=== PATIENT | female | born 1950 | race Caucasian/White ===

== ENCOUNTER 2016-12-15 15:11 | Inpatient (IN) | payer BC, MEDICARE ==
[2016-12-15] MEDS ORDERED: Maalox 30 mL Cup PO PRN (16:00)
[2016-12-15] MEDS ORDERED: Hydrocodone/APAP 5mg/325mg Tab PO PRN (16:00)
[2016-12-15] MEDS ORDERED: Magnesium Hydroxide (MOM) 30 mL UDC PO PRN (16:00)
[2016-12-15 16:26] VITALS: BP 139/74
[2016-12-15 16:44] LABS: HEMATOCRIT 38.9 % (35.0-45.0); HEMOGLOBIN 13.4 gm/dL (11.7-16.1); MEAN CELL VOLUME 92.9 fl (81-100); MEAN CORPUSCULAR HEMOGLOBIN 32.1 pg (27.0-31.0); MEAN CORPUSCULAR HGB CONC 34.6 pg (28.0-36.0); MEAN PLATELET VOLUME 8.5 fl; PLATELET COUNT 332 Th/cmm (150-400); RED BLOOD COUNT 4.19 Mil/cmm (3.80-5.20); RED CELL DISTRIBUTION WIDTH 13.2 % (11.5-20.0)
[2016-12-15 16:50] LABS: WHITE BLOOD COUNT 16.5 Th/cmm (4.8-10.8)
[2016-12-15] MEDS: D5-0.9%NS 1,000 ML IV SCH (16:53)
[2016-12-15] MEDS: Hydrocodone/APAP 10 mg/325 mg Tab PO PRN ×2 (16:57→23:51)
[2016-12-15 16:58] LABS: ALB/GLOB RATIO 1.3 (1.0-1.8); ANION GAP 11.9 (7.0-16.0); BILIRUBIN,TOTAL 0.3 mg/dL (0.3-1.0); BUN/CREATININE RATIO 34.4; CALCIUM SERUM 9.7 mg/dL (8.6-10.3); CARBON DIOXIDE 26.5 mEq/L (21.0-31.0); CREATININE - SERUM 1.6 mg/dL (0.6-1.2); PHOSPHOROUS 2.1 mg/dL (2.5-5.0); POTASSIUM SERUM 3.4 mEq/L (3.5-5.1)
[2016-12-15 17:22] LABS: EOSINOPHIL 4 % (0-5); NEUTROPHILS 63 % (40-80); PLATELET ESTIMATE ADEQUATE (NORMAL); TOTAL CELLS COUNTED 100
[2016-12-16 01:19] LABS: URINE BILIRUBIN NEGATIVE (NEGATIVE); URINE BLOOD SMALL (NEGATIVE); URINE COLOR YELLOW; URINE GLUCOSE (UA) NEGATIVE (NEGATIVE); URINE KETONE TRACE mg/dL (NEGATIVE)
[2016-12-16 01:20] LABS: URINE BACTERIA NONE SEEN /hpf (NONE SEEN); URINE EPITHELIAL CELLS FEW /lpf (FEW); URINE PROTEIN NEGATIVE (NEGATIVE); URINE RBC 0-2 /hpf (0-5); URINE UROBILINOGEN 0.2 E.U./dL (0.2 - 1.0)
[2016-12-16] MEDS: D5-0.9%NS 1,000 ML IV SCH ×2 (04:23→14:55)
[2016-12-16 06:16] LABS: % BASOPHILS 0.3 % (0.0-2.0); % EOSINOPHILS 4.4 % (0.0-5.0); % LYMPHOCYTES 33.5 % (20.0-50.0); % NEUTROPHILS 54.8 % (40.0-80.0); HEMATOCRIT 35.3 % (35.0-45.0); HEMOGLOBIN 12.1 gm/dL (11.7-16.1); MEAN CELL VOLUME 93.9 fl (81-100); MEAN CORPUSCULAR HEMOGLOBIN 32.3 pg (27.0-31.0); MEAN CORPUSCULAR HGB CONC 34.4 pg (28.0-36.0); MEAN PLATELET VOLUME 8.4 fl; NEUTROPHILE ABSOLUTE 6.8 Th/cmm (1.8-8.0); RED BLOOD COUNT 3.76 Mil/cmm (3.80-5.20); RED CELL DISTRIBUTION WIDTH 13.4 % (11.5-20.0)
[2016-12-16 06:35] LABS: PLATELET COUNT 262 Th/cmm (150-400); WHITE BLOOD COUNT 12.5 Th/cmm (4.8-10.8)
[2016-12-16 06:40] LABS: ANION GAP 8.6 (7.0-16.0); BUN/CREATININE RATIO 31.4; CARBON DIOXIDE 25.1 mEq/L (21.0-31.0); CREATININE - SERUM 1.4 mg/dL (0.6-1.2); MAGNESIUM 1.9 mg/dL (1.9-2.7); PHOSPHOROUS 1.8 mg/dL (2.5-5.0); POTASSIUM SERUM 3.7 mEq/L (3.5-5.1)
[2016-12-16] MEDS: Hydrocodone/APAP 10 mg/325 mg Tab PO PRN ×2 (13:52→21:26)
--- NOTE | 2016-12-17 03:45 | History & Physical ---
ADMIT DATE: 12/16/2016 CHIEF COMPLAINT: Fall. HISTORY OF PRESENT ILLNESS: The patient is a 66-year-old white female who slipped 5 days ago and has been unable to get up since then. The patient says he has test driver who comes in, but did not come this week. The patient has chronic pain. The patient was transferred to [facility] from [facility] in [place]. PAST MEDICAL HISTORY: Osteoarthritis, fibromyalgia. SOCIAL HISTORY: No reports of smoking, drinking or drug use. The patient lives alone. REVIEW OF SYSTEMS: See history of present illness. MEDICATION: See medication reconciliation form. PHYSICAL EXAMINATION: VITAL SIGNS ON ADMISSION: Temperature 98.0, pulse is 78, blood pressure 139/74, respiratory rate 16, O2 sat 97% on room air. GENERAL: The patient is awake, alert, nontoxic in appearance. HEENT: Normocephalic, atraumatic. Extraocular movements intact. Oropharynx clear. NECK: Supple. No thyromegaly. No lymphadenopathy. CARDIOVASCULAR: S1, S2. No murmurs, rubs or gallop. RESPIRATORY: Clear. No wheezes or rhonchi. GASTROINTESTINAL: Soft, nontender, nondistended. Positive bowel sounds. GENITOURINARY: No CVA tenderness. No suprapubic tenderness. BACK: No midline tenderness. EXTREMITIES: Equal pulses bilaterally. No cyanosis, clubbing or edema. SKIN: Negative. PSYCHIATRIC: Negative. NEUROLOGIC: Intact. Extraocular movements are intact. Sensation intact. Neurovascular intact. Bilateral muscle grossly normal. LABORATORY DATA: On admission are as follows: Hematology: WBC 16.5, hemoglobin 13.4, hematocrit 38.9, platelet count 232. No left shift noted. Chemistry: Sodium 142, potassium 3.4, chloride 107, bicarb 26, anion gap 11, BUN 55, creatinine 1.6. GFR is 34.4, glucose per labs, calcium 9.7, phosphorus 2.1, magnesium 2.1, total bili 0.3, AST 14, ALT is 8, alkaline phosphatase 68, creatinine kinase 64, total protein 6.1, albumin 3.4, globulin 2.7. RADIOLOGY: No new radiological results. IMPRESSION: 1. Leukocytosis. 2. Hypokalemia. 3. Acute kidney injury. 5. Hypophosphatemia. 6. Hypoalbuminemia. 7. Osteoarthritis. 8. Fibromyalgia. PLAN: The patient admitted to med-surg unit at [facility]. Seen by Dr. Saad Blanco. We will do further labs and consultation as needed. JOB# [id number] MTDD
--- NOTE | 2016-12-17 04:05 | Consultation ---
DATE OF CONSULTATION: 12/16/2016 INPATIENT NEPHROLOGY CONSULTATION REASON FOR CONSULTATION: Acute kidney injury. HISTORY OF PRESENT ILLNESS: The patient is a very pleasant 66-year-old woman with past medical history of osteoarthritis and fibromyalgia, who was admitted status post fall, mechanical, about 2 days prior to admission. The patient states that she was stuck in her shower and unable to come in because she cannot get up, finally was able to be brought in by neighbor to [facility] and subsequently transferred to [place] for continuation of care. On examination, the patient is alert and oriented. Denies complaints. No previous history of renal disease endorsed. REVIEW OF SYSTEMS: Denies fevers, chills, nausea, vomiting, chest pain, shortness of breath. Endorses some back discomfort. Otherwise, 14-point review of systems is negative except as noted above. PAST MEDICAL HISTORY: As per above. PAST SURGICAL HISTORY: None. FAMILY HISTORY: No history of diabetes or renal disease. SOCIAL HISTORY: No smoking, alcohol, or drug use. No past history of smoking endorsed. MEDICATIONS: Include ____ 100 mL an hour, lisinopril 20 mg p.o. daily, duloxetine 30 mg p.o. b.i.d., pregabalin and Zofran as needed, and magnesium oxide as needed. OBJECTIVE EXAMINATION: VITAL SIGNS: Temperature 36, blood pressure 124/68, pulse 82, respirations 18. GENERAL APPEARANCE: Well-developed, well-nourished, obese woman, in no apparent distress. LUNGS: Clear to auscultation bilaterally. CARDIAC: Regular rate, normal rhythm. No murmurs or rubs. EXTREMITIES: Trace edema, 1+ pulses distally. LABORATORY DATA: As of 12/16/2016, urinalysis, pH 5.0, urine specific gravity 1.005, no protein, small blood, nitrites, bilirubin negative, leukocyte esterase, 0-5 rbc's, 2-5 wbc's, urine sodium 37, urine creatinine 81. Chemistry: Sodium 141, K 3.7, chloride 111, CO2 25, BUN 44, creatinine 1.4. Of note 12/14/2016, labs done at [facility] showed a creatinine of 1.9. IMPRESSION AND RECOMMENDATIONS: 1. Acute kidney injury, likely secondary to prerenal etiology, improving with volume resuscitation. No significant proteinuria on urinalysis, but we will quantify today with a urine protein to creatinine ratio and microalbuminuria to creatinine ratio given the patient's history of diabetes mellitus type 2 that apparently has been reversed as per the patient likely this is expected GFR for age. 2. Chronic kidney disease, stage 3, likely secondary to diabetic nephropathy. We will follow up on the renal ultrasound result to rule out intrinsic structural renal disease. Otherwise, follow up on above. 3. Osteoarthritis, stable. The patient advised to hold off any NSAIDs to avoid worsening of renal function at this time. 4. Status post fall, management as per primary service. Appears to be intact at this time. Thank you Dr. Blanco for allowing us to participate in the care of this patient. We will continue to follow along with you while hospitalized. JOB# [id number]
[2016-12-17] MEDS: D5-0.9%NS 1,000 ML IV SCH ×2 (06:04→08:14)
[2016-12-17 07:24] LABS: % BASOPHILS 0.4 % (0.0-2.0); % EOSINOPHILS 4.9 % (0.0-5.0); % LYMPHOCYTES 34.3 % (20.0-50.0); % MONOCYTES 7.4 % (2.0-10.0); HEMATOCRIT 34.4 % (35.0-45.0); HEMOGLOBIN 11.7 gm/dL (11.7-16.1); MEAN CELL VOLUME 94.1 fl (81-100); MEAN CORPUSCULAR HEMOGLOBIN 31.9 pg (27.0-31.0); MEAN CORPUSCULAR HGB CONC 33.9 pg (28.0-36.0); MEAN PLATELET VOLUME 8.9 fl; NEUTROPHILE ABSOLUTE 5.2 Th/cmm (1.8-8.0); PLATELET COUNT 210 Th/cmm (150-400); RED BLOOD COUNT 3.66 Mil/cmm (3.80-5.20)
[2016-12-17 07:36] LABS: WHITE BLOOD COUNT 9.7 Th/cmm (4.8-10.8)
[2016-12-17 07:57] LABS: ANION GAP 7.7 (7.0-16.0); BUN/CREATININE RATIO 24.2; CALCIUM SERUM 9.2 mg/dL (8.6-10.3); CARBON DIOXIDE 27.5 mEq/L (21.0-31.0); CREATININE - SERUM 1.2 mg/dL (0.6-1.2); PHOSPHOROUS 1.7 mg/dL (2.5-5.0); POTASSIUM SERUM 4.2 mEq/L (3.5-5.1)
[2016-12-17] MEDS: Hydrocodone/APAP 10 mg/325 mg Tab PO PRN ×3 (08:13→21:23)
--- NOTE | 2016-12-17 08:50 | Diagnostic Imaging Report ---
Renal ultrasound HISTORY: Abnormal renal function test The right kidney is normal in size (9.4 x 5.7 x 6.1 cm). A 1.3 cm sonolucent lesion is noted in the upper pole consistent with a cyst. No hydronephrosis. The left kidney is normal in size (10.8 x 6.0 x 5.3 cm). A 2.6 cm sonolucent lesion consistent with a cyst noted in the upper pole. Additional smaller cysts are also seen. No definite intraluminal abnormality seen within the urinary bladder. A somewhat linear echogenic density noted adjacent to the left lateral margin of the urinary bladder wall. Findings of questionable significance. If necessary, a CT scan provide additional assessment. IMPRESSION: 1. Findings consistent with bilateral renal cysts 2. No hydronephrosis 3. Small linear echogenic density adjacent the left lateral margin of the urinary bladder wall. Question calcification. If necessary, a CT scan would provide additional assessment.
--- NOTE | 2016-12-17 09:50 | General Progress Note ---
Subjective - Review of Systems Service Date: 12/17/16 Events since last encounter: Denies c/o, otherwise feels well. Cr back to normal range today Objective - Results Result Diagrams: 12/17/16 06:36 12/17/16 06:36 Recent Labs: Laboratory Last Values WBC 9.7 Th/cmm (4.8-10.8) D 12/17/16 06:36 RBC 3.66 Mil/cmm (3.80-5.20) L 12/17/16 06:36 Hgb 11.7 gm/dL (11.7-16.1) 12/17/16 06:36 Hct 34.4 % (35.0-45.0) L 12/17/16 06:36 MCV 94.1 fl (81-100) 12/17/16 06:36 MCH 31.9 pg (27.0-31.0) H 12/17/16 06:36 MCHC Differential 33.9 pg (28.0-36.0) 12/17/16 06:36 RDW 13.0 % (11.5-20.0) 12/17/16 06:36 Plt Count 210 Th/cmm (150-400) 12/17/16 06:36 MPV 8.9 fl 12/17/16 06:36 Neutrophils % 53.0 % (40.0-80.0) 12/17/16 06:36 Lymphocytes % 34.3 % (20.0-50.0) 12/17/16 06:36 Monocytes % 7.4 % (2.0-10.0) 12/17/16 06:36 Eosinophils % 4.9 % (0.0-5.0) 12/17/16 06:36 Basophils % 0.4 % (0.0-2.0) 12/17/16 06:36 Neutrophils (Manual) 63 % (40-80) 12/15/16 16:34 Lymphocytes 29 % (20-50) 12/15/16 16:34 Monocytes 4 % (2-10) 12/15/16 16:34 Eosinophils 4 % (0-5) 12/15/16 16:34 Platelet Estimate ADEQUATE (NORMAL) 12/15/16 16:34 ESR 31 mm/hr (0-30) H 12/17/16 06:36 Sodium 142 mEq/L (136-145) 12/17/16 06:36 Potassium 4.2 mEq/L (3.5-5.1) 12/17/16 06:36 Chloride 111 mEq/L (98-107) H 12/17/16 06:36 Carbon Dioxide 27.5 mEq/L (21.0-31.0) 12/17/16 06:36 Anion Gap 7.7 (7.0-16.0) 12/17/16 06:36 BUN 29 mg/dL (7-25) H 12/17/16 06:36 Creatinine 1.2 mg/dL (0.6-1.2) 12/17/16 06:36 Est GFR ( Amer) 58.0 ml/min (>90) 12/17/16 06:36 Est GFR (Non-Af Amer) 47.9 ml/min 12/17/16 06:36 BUN/Creatinine Ratio 24.2 12/17/16 06:36 Glucose 89 mg/dL (70-105) 12/17/16 06:36 Calcium 9.2 mg/dL (8.6-10.3) 12/17/16 06:36 Phosphorus 1.7 mg/dL (2.5-5.0) L 12/17/16 06:36 Magnesium 1.9 mg/dL (1.9-2.7) 12/16/16 06:00 Total Bilirubin 0.3 mg/dL (0.3-1.0) 12/15/16 16:34 AST 14 U/L (13-39) 12/15/16 16:34 ALT 8 U/L (7-52) 12/15/16 16:34 Alkaline Phosphatase 68 U/L (34-104) 12/15/16 16:34 Creatine Kinase 46 U/L (30-223) 12/16/16 06:00 Total Protein 6.1 gm/dL (6.0-8.3) 12/15/16 16:34 Albumin 3.4 gm/dL (3.7-5.3) L 12/15/16 16:34 Globulin 2.7 gm/dL 12/15/16 16:34 Albumin/Globulin Ratio 1.3 (1.0-1.8) 12/15/16 16:34 Urine Source CATH 12/16/16 00:20 Urine Color YELLOW 12/16/16 00:20 Urine Clarity HAZY (CLEAR) 12/16/16 00:20 Urine pH 5.0 12/16/16 00:20 Ur Specific [place] 1.005 (1.005-1.030) 12/16/16 00:20 Urine Protein NEGATIVE mg/dL (NEGATIVE) 12/16/16 00:20 Urine Glucose (UA) NEGATIVE mg/dL (NEGATIVE) 12/16/16 00:20 Urine Ketones TRACE mg/dL (NEGATIVE) 12/16/16 00:20 Urine Blood SMALL (NEGATIVE) H 12/16/16 00:20 Urine Nitrate NEGATIVE (NEGATIVE) 12/16/16 00:20 Urine Bilirubin NEGATIVE (NEGATIVE) 12/16/16 00:20 Urine Urobilinogen 0.2 E.U./dL (0.2 - 1.0) 12/16/16 00:20 Ur Leukocyte Esterase TRACE (NEGATIVE) H 12/16/16 00:20 Urine RBC 0-2 /hpf (0-5) 12/16/16 00:20 Urine WBC 2-5 /hpf (0-5) 12/16/16 00:20 Ur Epithelial Cells FEW /lpf (FEW) 12/16/16 00:20 Urine Bacteria NONE SEEN /hpf (NONE SEEN) 12/16/16 00:20 Ur Random Sodium 37 mmol/L 12/16/16 00:20 Urine Creatinine 81.0 mg/dl (28.0-217.0) 12/16/16 00:20 - Physical Exam Vitals and I&O: Vital Signs Temp 98.6 F 12/17/16 04:00 Pulse 67 12/17/16 08:11 Resp 19 12/17/16 04:00 BP 149/79 12/17/16 08:11 Pulse Ox 97 12/17/16 04:00 Intake & Output 12/16/16 12/17/16 12/17/16 18:59 06:59 18:59 Intake Total 2200 1500 216.667 Balance 2200 1500 216.667 Intake: Intake, IV Amount 1000 1000 216.667 D5-0.9%Ns 1,000 ml @ 100 1000 1000 216.667 mls/hr IV .Q10H [facility] Rx#: [id number] Oral 1200 500 Other: # Voids 4 2 # Bowel Movements 3 2 Active Medications: Current Medications Acetaminophen (Tylenol) 650 mg PO Q6H PRN PRN Reason: Mild Pain/Headache/T above 101 Stop: 02/13/17 15:59 Acetaminophen/Hydrocodone Bitart ([place] 10 Mg/325 Mg) 1 tab PO Q6H PRN PRN Reason: Pain (Severe) Stop: 02/13/17 15:59 Last Admin: 12/17/16 08:13 Dose: 1 tab Acetaminophen/Hydrocodone Bitart ([place] 5mg/325mg) 1 tab PO Q6H PRN PRN Reason: Moderate Pain Stop: 02/13/17 15:59 Al Hydrox/Mg Hydrox/Simethicone (Maalox) 30 ml PO Q6H PRN PRN Reason: GI DISTRESS Stop: 02/13/17 15:59 Duloxetine HCl (Cymbalta) 30 mg PO BID [facility]AN[facility] PRN Reason: Protocol Stop: 02/14/17 00:00 Last Admin: 12/17/16 08:11 Dose: 30 mg Dextrose/Sodium Chloride (D5-0.9%Ns) 1,000 mls @ 100 mls/hr IV .Q10H [facility] Stop: 02/13/17 15:59 Last Admin: 12/17/16 08:14 Dose: 100 mls/hr Lisinopril (Zestril) 20 mg PO DAILY [facility] Stop: 02/14/17 08:59 Last Admin: 12/17/16 08:11 Dose: 20 mg Magnesium Hydroxide (Milk Of Magnesia) 30 ml PO HS PRN PRN Reason: Constipation Stop: 02/13/17 15:59 Ondansetron HCl (Zofran Odt) 4 mg PO Q6H PRN PRN Reason: Nausea / Vomiting Stop: 02/13/17 15:59 Pregabalin (Lyrica) 75 mg PO BID [facility] Stop: 02/13/17 16:59 Last Admin: 12/17/16 08:11 Dose: 75 mg General: Alert, Oriented x3 HEENT: Atraumatic Neck: Supple Cardiovascular: Regular rate Lungs: Clear to auscultation Abdomen: Bowel sounds, Soft Extremities: Edema Assessment/Plan - Assessment Assessment: SARA resolved with IVF. Encourage PO hydration at this time. Urine protein and microalbumin can be followed up as an outpatient Thank you Dr. Blanco for involving us in the care of this patient. We will sign off at this time.
--- NOTE | 2016-12-17 11:28 | Consultation ---
Consult Note - Consult Note Service Date: 12/17/16 Referring Physician: Roque Blanco Consult Note: [id number]
[2016-12-17] MEDS ORDERED: Potassium Phosphate 20 MMOLE in Sodium Chloride 0.9% 250 ML IV ONE (18:55)
--- NOTE | 2016-12-18 04:10 | Consultation ---
DATE OF CONSULTATION: 12/17/2016 REFERRING PHYSICIAN: Dr. Roque Blanco. REASON FOR CONSULTATION: Leukocytosis. HISTORY OF PRESENT ILLNESS: The patient is a 66-year-old female with a past medical history of fibromyalgia, osteoarthritis, sled from her bed and landed on her carpet at home. She also stated that she was not getting enough water intake, fluid intake for the last 5-6 days. She was very weak and unable to get up from the floor. She called the neighbor and ultimately she was brought to the [facility] for further evaluation and management. On initial evaluation, the patient's temperature was 97.2 degrees Fahrenheit and WBC count was 16,700. The patient was transferred to [facility] for insurance purposes. As the patient had leukocytosis, ID consult was called for further antibiotic management. PAST MEDICAL HISTORY: Includes osteoarthritis and fibromyalgia. SOCIAL HISTORY: The patient lives alone. No history of smoking, alcohol or drug use. REVIEW OF SYSTEMS: GENERAL: The patient denies any fever, chills or diaphoresis. The patient had generalized weakness. HEENT: No diplopia, no photophobia and no sore throat. RESPIRATORY: The patient denies any cough or shortness of breath. CARDIOVASCULAR: The patient denies chest pain or palpitation. GASTROINTESTINAL: The patient nausea, vomiting, diarrhea or constipation. GENITOURINARY: No dysuria. NEUROLOGIC: No headache, no dizziness, no focal weakness, but the patient complains of pain all over the body. SKIN: The patient has some abrasion wound on the hip on the left side, chest on the left side and the back. PHYSICAL EXAMINATION: CURRENT VITAL SIGNS: Shows temperature is 98.6 degrees Fahrenheit, pulse 67, respiration is 19 and blood pressure 149/79. GENERAL: The patient is comfortable lying in the bed, not in acute distress. HEENT: Head is normocephalic and atraumatic. Oral cavity moist. [place] tongue. Eyes: No pallor and no icterus. PERRLA, EOMI. NECK: Supple. No JVD and no carotid bruit. Trachea in midline. CHEST: Bilateral breath sounds. NO crackles or wheezing. HEART: S1 and S2 within normal limits. Regular rhythm. No murmur, no gallop. ABDOMEN: Soft, nontender, nondistended. Bowel sounds present. EXTREMITIES: No cyanosis, no clubbing, no edema. NEUROLOGIC: Alert, awake, oriented x 3. SKIN: The patient has stage 2 ulceration on the chest laterally and upper back and left thigh. Please, review the pictures for detail. LABORATORY DATA: Current labs shows WBC 9700, hemoglobin 11.7, hematocrit 34.4, platelets are 210,000, neutrophils 53% and ESR 31. Sodium 142, potassium 4.2, chloride 111, bicarbonate is 27.5 and BUN is 21, creatinine 1.2 and glucose is 89. IMAGING STUDIES: Urinalysis shows hazy urine with nitrite negative, trace leukocyte esterase, WBC 2-5, bacteria none. No MRSA screen. Renal ultrasound showed bilateral renal cyst, small linear echogenic intensity adjacent to the left lateral margin of the urinary bladder wall. IMPRESSION: 1. Leukocytosis, likely secondary to dehydration and acute renal failure. 2. Acute renal failure secondary to dehydration. 3. Mild cystitis or urinary tract infection. 4. Laceration wound on the left chest wall, back and left thigh. 5. Fibromyalgia. 6. Osteoarthritis. 7. Status post fall. RECOMMENDATIONS: Physical therapy and wound care. We will give Levaquin 250 p.o. daily for 5 days. Thank you, Dr. Blanco for involving me in taking care of this patient. [facility]# [id number] [facility] CENTERWaleska
[2016-12-18 06:47] LABS: % BASOPHILS 0.7 % (0.0-2.0); % EOSINOPHILS 5.5 % (0.0-5.0); % LYMPHOCYTES 38.5 % (20.0-50.0); % MONOCYTES 6.8 % (2.0-10.0); % NEUTROPHILS 48.5 % (40.0-80.0); HEMATOCRIT 33.7 % (35.0-45.0); HEMOGLOBIN 11.4 gm/dL (11.7-16.1); MEAN CELL VOLUME 93.7 fl (81-100); MEAN CORPUSCULAR HEMOGLOBIN 31.7 pg (27.0-31.0); MEAN CORPUSCULAR HGB CONC 33.8 pg (28.0-36.0); MEAN PLATELET VOLUME 9.7 fl; PLATELET COUNT 192 Th/cmm (150-400); RED BLOOD COUNT 3.59 Mil/cmm (3.80-5.20); RED CELL DISTRIBUTION WIDTH 12.7 % (11.5-20.0); WHITE BLOOD COUNT 8.5 Th/cmm (4.8-10.8)
[2016-12-18 07:08] LABS: ANION GAP 7.4 (7.0-16.0); BUN - UREA NITROGEN 30 mg/dL (7-25); CARBON DIOXIDE 24.1 mEq/L (21.0-31.0); CHLORIDE 112 mEq/L (98-107); GLUCOSE 91 mg/dL (70-105); POTASSIUM SERUM 4.5 mEq/L (3.5-5.1); SODIUM SERUM 139 mEq/L (136-145)
[2016-12-18] MEDS ORDERED: Potassium Phosphate 20 MMOLE in Sodium Chloride 0.9% 250 ML IV ONE (08:00)
[2016-12-18] MEDS: Hydrocodone/APAP 10 mg/325 mg Tab PO PRN ×2 (08:46→16:07)
[2016-12-18] MEDS ORDERED: Venelex 60gm Tube TP SCH (09:00)
[2016-12-18 12:17] LABS: MICROALBUMIN RANDOM RUINE 12.5 ug/mL (Not Estab.)
--- NOTE | 2016-12-18 12:46 | Infectious Disease Prog Note ---
Infectious Disease Subjective - Review of Systems Service Date: 12/18/16 Subjective: No new change, there is no fever. Infectious Disease Objective - Results Result Diagrams: 12/18/16 05:49 12/18/16 05:49 Recent Labs: Laboratory Last Values WBC 8.5 Th/cmm (4.8-10.8) 12/18/16 05:49 RBC 3.59 Mil/cmm (3.80-5.20) L 12/18/16 05:49 Hgb 11.4 gm/dL (11.7-16.1) L 12/18/16 05:49 Hct 33.7 % (35.0-45.0) L 12/18/16 05:49 MCV 93.7 fl (81-100) 12/18/16 05:49 MCH 31.7 pg (27.0-31.0) H 12/18/16 05:49 MCHC Differential 33.8 pg (28.0-36.0) 12/18/16 05:49 RDW 12.7 % (11.5-20.0) 12/18/16 05:49 Plt Count 192 Th/cmm (150-400) 12/18/16 05:49 MPV 9.7 fl 12/18/16 05:49 Neutrophils % 48.5 % (40.0-80.0) 12/18/16 05:49 Lymphocytes % 38.5 % (20.0-50.0) 12/18/16 05:49 Monocytes % 6.8 % (2.0-10.0) 12/18/16 05:49 Eosinophils % 5.5 % (0.0-5.0) H 12/18/16 05:49 Basophils % 0.7 % (0.0-2.0) 12/18/16 05:49 Neutrophils (Manual) 63 % (40-80) 12/15/16 16:34 Lymphocytes 29 % (20-50) 12/15/16 16:34 Monocytes 4 % (2-10) 12/15/16 16:34 Eosinophils 4 % (0-5) 12/15/16 16:34 Platelet Estimate ADEQUATE (NORMAL) 12/15/16 16:34 ESR 31 mm/hr (0-30) H 12/17/16 06:36 Sodium 139 mEq/L (136-145) 12/18/16 05:49 Potassium 4.5 mEq/L (3.5-5.1) 12/18/16 05:49 Chloride 112 mEq/L (98-107) H 12/18/16 05:49 Carbon Dioxide 24.1 mEq/L (21.0-31.0) 12/18/16 05:49 Anion Gap 7.4 (7.0-16.0) 12/18/16 05:49 BUN 30 mg/dL (7-25) H 12/18/16 05:49 Creatinine 1.0 mg/dL (0.6-1.2) 12/18/16 05:49 Est GFR ( Amer) > 60.0 ml/min (>90) 12/18/16 05:49 Est GFR (Non-Af Amer) 59.1 ml/min 12/18/16 05:49 BUN/Creatinine Ratio 30.0 12/18/16 05:49 Glucose 91 mg/dL (70-105) 12/18/16 05:49 Calcium 9.0 mg/dL (8.6-10.3) 12/18/16 05:49 Phosphorus 1.7 mg/dL (2.5-5.0) L 12/17/16 06:36 Magnesium 1.6 mg/dL (1.9-2.7) L 12/17/16 06:36 Total Bilirubin 0.3 mg/dL (0.3-1.0) 12/15/16 16:34 AST 14 U/L (13-39) 12/15/16 16:34 ALT 8 U/L (7-52) 12/15/16 16:34 Alkaline Phosphatase 68 U/L (34-104) 12/15/16 16:34 Creatine Kinase 46 U/L (30-223) 12/16/16 06:00 C-Reactive Protein 1.4 mg/dL (0.0-0.9) H 12/17/16 06:36 Total Protein 6.1 gm/dL (6.0-8.3) 12/15/16 16:34 Albumin 3.4 gm/dL (3.7-5.3) L 12/15/16 16:34 Globulin 2.7 gm/dL 12/15/16 16:34 Albumin/Globulin Ratio 1.3 (1.0-1.8) 12/15/16 16:34 Urine Source CATH 12/16/16 00:20 Urine Color YELLOW 12/16/16 00:20 Urine Clarity HAZY (CLEAR) 12/16/16 00:20 Urine pH 5.0 12/16/16 00:20 Ur Specific [place] 1.005 (1.005-1.030) 12/16/16 00:20 Urine Protein NEGATIVE mg/dL (NEGATIVE) 12/16/16 00:20 Urine Glucose (UA) NEGATIVE mg/dL (NEGATIVE) 12/16/16 00:20 Urine Ketones TRACE mg/dL (NEGATIVE) 12/16/16 00:20 Urine Blood SMALL (NEGATIVE) H 12/16/16 00:20 Urine Nitrate NEGATIVE (NEGATIVE) 12/16/16 00:20 Urine Bilirubin NEGATIVE (NEGATIVE) 12/16/16 00:20 Urine Urobilinogen 0.2 E.U./dL (0.2 - 1.0) 12/16/16 00:20 Ur Leukocyte Esterase TRACE (NEGATIVE) H 12/16/16 00:20 Urine RBC 0-2 /hpf (0-5) 12/16/16 00:20 Urine WBC 2-5 /hpf (0-5) 12/16/16 00:20 Ur Epithelial Cells FEW /lpf (FEW) 12/16/16 00:20 Urine Bacteria NONE SEEN /hpf (NONE SEEN) 12/16/16 00:20 Ur Random Sodium 37 mmol/L 12/16/16 00:20 Urine Creatinine 70.1 mg/dl (Not Estab.) 12/16/16 00:20 Urine Microalbumin 12.5 ug/mL (Not Estab.) 12/16/16 00:20 Microalb/Creat Ratio 17.8 mg/g creat (0.0-30.0) 12/16/16 00:20 - Physical Exam Vitals and I&O: Vital Signs Temp 97.1 F 12/18/16 08:00 Pulse 61 12/18/16 08:43 Resp 18 12/18/16 08:00 BP 139/65 12/18/16 08:43 Pulse Ox 97 12/18/16 08:00 Intake & Output 12/17/16 12/18/16 12/18/16 18:59 06:59 18:59 Intake Total 425.943 4318 Balance 818.944 5650 Intake: Intake, IV Amount 702.487 4407 D5-0.9%Ns 1,000 ml @ 100 216.667 0 mls/hr IV .Q10H [facility] Rx#: [id number] Other: Stool Characteristics Soft Active Medications: Current Medications Acetaminophen (Tylenol) 650 mg PO Q6H PRN PRN Reason: Mild Pain/Headache/T above 101 Stop: 02/13/17 15:59 Acetaminophen/Hydrocodone Bitart ([place] 10 Mg/325 Mg) 1 tab PO Q6H PRN PRN Reason: Pain (Severe) Stop: 02/13/17 15:59 Last Admin: 12/18/16 08:46 Dose: 1 tab Acetaminophen/Hydrocodone Bitart ([place] 5mg/325mg) 1 tab PO Q6H PRN PRN Reason: Moderate Pain Stop: 02/13/17 15:59 Al Hydrox/Mg Hydrox/Simethicone (Maalox) 30 ml PO Q6H PRN PRN Reason: GI DISTRESS Stop: 02/13/17 15:59 Duloxetine HCl (Cymbalta) 30 mg PO BID [facility] PRN Reason: Protocol Stop: 02/14/17 00:00 Last Admin: 12/18/16 08:43 Dose: 30 mg Dextrose/Sodium Chloride (D5-0.9%Ns) 1,000 mls @ 100 mls/hr IV .Q10H [facility] Stop: 02/13/17 15:59 Last Infusion: 12/17/16 23:18 Dose: 100 mls/hr Potassium Phosphate 20 mmole/ (Sodium Chloride) 256.6667 mls @ 42.5 mls/hr IV X1 ONE Stop: 12/18/16 14:02 Last Admin: 12/18/16 08:43 Dose: 42.5 mls/hr Levofloxacin (Levaquin) 250 mg PO DAILY [facility] Stop: 12/23/16 08:59 Last Admin: 12/18/16 08:43 Dose: 250 mg Lisinopril (Zestril) 20 mg PO DAILY [facility] Stop: 02/14/17 08:59 Last Admin: 12/18/16 08:43 Dose: 20 mg Magnesium Hydroxide (Milk Of Magnesia) 30 ml PO HS PRN PRN Reason: Constipation Stop: 02/13/17 15:59 Ondansetron HCl (Zofran Odt) 4 mg PO Q6H PRN PRN Reason: Nausea / Vomiting Stop: 02/13/17 15:59 Pregabalin (Lyrica) 75 mg PO BID [facility] Stop: 02/13/17 16:59 Last Admin: 12/18/16 08:42 Dose: 75 mg General: no acute distress, well developed, well nourished HEENT: atraumatic, normocephalic, PERRLA, EOMI Neck: supple, thyromegaly, lymphadenopathy Cardiovascular: S1S2 Lungs: clear to auscultation bilaterally, clear to percussion Abdomen: soft, no tender, no distended Extremities: no cyanosis, no clubbing, no edema Neurological: awake, alert, oriented Skin: other (abrasion wounds on left lateral chest, back and left thigh.) Infectious Disease Assmt/Plan - Assessment Assessment: Impression: Leukocytosis improved. abrasion/ laceration wounds on chest and thigh. Chronic pain syndrome. Fibromyalgia. Arthritis. s/p fall. - Plan Plan: Wound care.
--- NOTE | 2016-12-19 09:16 | Progress Notes ---
DATE: 12/18/2016 SUBJECTIVE: The patient is awake and alert. The patient is on IV fluids. The patient received inpatient rehab therapy. Per nursing, the patient still has difficulty ambulation. PHYSICAL EXAMINATION: VITAL SIGNS: Temperature 97.1, pulse per nursing, blood pressure 129/65, respiratory rate 18, O2 saturation of 100% on room air. CARDIOVASCULAR: S1 and S2. RESPIRATORY: Clear. ABDOMEN: Soft and positive bowel sounds. LABORATORY DATA: The patient has hematology of 8.5, hemoglobin per labs, hematocrit per labs, platelet count 182 and 4% eosinophils. Chemistry: Sodium 139, potassium 4.5, chloride 112, bicarbonate 24, anion gap 7.4, BUN 30, creatinine 1.0. GFR is more than 60, glucose 91 and calcium 9.0. ASSESSMENT: 1. Anemia. 2. Azotemia. 3. Leukocytosis, resolved (secondary to dehydration and acute kidney injury. 4. Acute kidney injury, resolved (secondary to dehydration). 5. Cystitis/urinary tract infection. 6. Fibromyalgia 7. Osteoarthritis. 8. Status post fall. PLAN: Continue current medications. Continue IV fluids. Continue inpatient rehab therapy. Further recommendations per consultations. JOB# [id number] [email or web address]
--- NOTE | 2016-12-27 02:06 | Discharge Summary ---
DATE OF DISCHARGE: 12/18/2016 DISCHARGE DIAGNOSES: 1. Anemia. 2. Azotemia. 3. Leukocytosis (resolved). 4. Acute kidney injury (resolved). 5. Cystitis/urinary tract infection. 6. Fibromyalgia. 7. Osteoarthritis. 8. Status post fall. HOSPITAL COURSE: The patient is a 66-year-old white female who has been transferred from [facility]. The patient admitted with diagnoses with leukocytosis, acute kidney injury, hypophosphatemia, hypoalbuminemia, osteoarthritis and fibromyalgia. The patient was admitted to Med-Surg Unit. Cultures were obtained. Nephrology consultation obtained with Dr. Booker and SARA secondary to prerenal. Recommendation is for the patient to continue on IV fluids. The patient was found to have chronic kidney disease stage 3 secondary to diabetic nephropathy. Infectious Disease consult obtained from Dr. Janice Gonzalez. The patient's leukocytosis was felt secondary to dehydration and acute renal failure. The patient also had mild cystitis or UTI. The patient was recommended for Levaquin p.o. 250 mg daily for 5 days. The patient was discharged to [facility]. JOB# [id number] MTDD
--- NOTE | 2017-01-24 09:05 | Progress Notes ---
DATE: 12/17/2016 SUBJECTIVE: The patient is awake and alert. The patient received inpatient rehab therapy. The patient is on antibiotics. The patient is on IV fluids. OBJECTIVE: VITAL SIGNS: Temperature 97.8, pulse is 70, blood pressure 126/78, respiratory rate 19 and O2 sat 97% on room air. CARDIOVASCULAR: S1, S2. RESPIRATORY: Clear. GASTROINTESTINAL: Soft. Positive bowel sounds. LABORATORY DATA: Hematology: WBC per labs, hemoglobin per labs, hematocrit 34.4, platelet count 210. No left shift noted. ESR is 31. Chemistry: Sodium 142, potassium 4.2, chloride 111, bicarb 27, BUN 29, creatinine per labs, GFR is 47.9, glucose 89, calcium 9.2, phosphorus 1.7. MICROBIOLOGY: MRSA screen from 12/15/2016 negative. RADIOLOGY: Renal ultrasound shows findings consistent with bilateral renal cyst. No hydronephrosis. Small linear echogenic density seen adjacent to the left lateral margin of the urinary bladder wall, question calcification. CT scan will provide additional assessment. ASSESSMENT: 1. Leukocytosis (resolved). 2. Acute kidney injury (resolved). 3. Osteoarthritis. 4. Fibromyalgia. 5. Azotemia. 6. Hypophosphatemia. 7. Deconditioning/debility. PLAN: Continue current medications and treatment. Obtain labs in a.m. Awaiting culture results. Continue the patient in rehab therapy. Further recommendations per consults. manager skilled will arrange for SNF placement. JOB# [id number] [facility]
== END 2016-12-18 18:20 | DRG 871 ==
LOC: MSI 15:11
PROVIDERS: ADMIT Preventive Medicine Preventive Medicine/Occupational Environmental Medicine; ATTEND Preventive Medicine Preventive Medicine/Occupational Environmental Medicine
DX: A41.9 Sepsis, unspecified organism (principal); N17.0 Acute kidney failure with tubular necrosis; E11.22 Type 2 diabetes mellitus with diabetic chronic kidney disease; S21.112A Laceration without foreign body of left front wall of thorax without penetration into thoracic cavity, initial encounter; N18.3 Chronic kidney disease, stage 3 (moderate); N39.0 Urinary tract infection, site not specified; E86.0 Dehydration; E87.6 Hypokalemia; E83.39 Other disorders of phosphorus metabolism; M19.90 Unspecified osteoarthritis, unspecified site; M79.7 Fibromyalgia; W19.XXXA Unspecified fall, initial encounter; G89.29 Other chronic pain; E88.09 Other disorders of plasma-protein metabolism, not elsewhere classified; N28.1 Cyst of kidney, acquired; S31.010A Laceration without foreign body of lower back and pelvis without penetration into retroperitoneum, initial encounter; S71.112A Laceration without foreign body, left thigh, initial encounter; Y93.89 Activity, other specified; Y92.89 Other specified places as the place of occurrence of the external cause; Y99.8 Other external cause status; Z88.0 Allergy status to penicillin
CPT/HCPCS: 36415-UA; 76770-TC; 80048-TC; 80053-TC; 81001-TC; 82043-90; 82550-TC; 82570-TC; 83735-TC; 84100-TC; 84156-TC; 84300-TC; 85007-TC; 85025-TC; 85027-TC; 85652-TC; 86141-TC; 87075-90; 87205-90; 90799; 93005; 97530; J7030; J7042; X3904; Z7610